=== PATIENT | female | born 1975 | race Two or more races ===

== ENCOUNTER 2020-05-11 08:56 | Emergency (ER) | payer OTHER ==
[~2020-05-11] VITALS: Ht 160 cm; Wt 90.9 kg
--- NOTE | 2020-05-11 09:20 | NUR ---
THIS IS A 44 YO F W/ C/O RT FLANK/RUQ ABD PAIN X1 WEEK. PT DENIES N/V. PT REPORTS WORSE WHEN SITTING DOWN. PT ALSO HAS C/O LT NECK PAIN. PT RESTING ON GURNEY W/ CALL LIGHT IN REACH, FAMILY AT BEDSIDE AND SIDE RAILS UPX2. RESP EVEN AND UNLABORED, AMAURY.
--- NOTE | 2020-05-11 09:23 | NUR ---
BREAK ANGELES BEVERLY AT BEDSIDE FOR EVALUATION. PT ABLE TO AMBULATE TO BATHROOM, URINE SAMPLE OBTAINED. PT RESTING IN BED, CALL LIGHT IN REACH.
[2020-05-11] MEDS ORDERED: SODIUM CHLORIDE FLUSH 10ML SYR IVF ONE (09:30)
[2020-05-11] MEDS ORDERED: ONDANSETRON 2MG/ML, 2ML ONE ×2 (09:30→10:43)
[2020-05-11] MEDS ORDERED: ONDANSETRON 2MG/ML, 2ML IVPush ONE ×2 (09:30→11:00)
[2020-05-11] MEDS ORDERED: HYDROmorphone 2 MG/ML, 1ML IVPush PRN (09:30)
[2020-05-11] MEDS ORDERED: HYDROmorphone 1 MG/ML, 1ML INJ ONE (09:30)
--- NOTE | 2020-05-11 09:40 | NUR ---
PIV STARTED AND LABS DRAWN BY NORRIS IVEY.
--- NOTE | 2020-05-11 09:46 | NUR ---
US IN ROOM.
--- NOTE | 2020-05-11 09:48 | NUR ---
PT DESAT TO 79% DURING US. PLACED ON 2L NC W/ DESIRED EFFECT.
[2020-05-11 09:49] LABS: MICROSCOPIC AUTO
[2020-05-11 09:57] LABS: BASOPHILS % (AUTO) 1 % (0-1); EOSINOPHILS % (AUTO) 1 % (1-7); LYMPHOCYTES % (AUTO) 25 % (22-44); MEAN CORPUSCULAR HEMOGLOBIN 24.6 pg (27.0-34.8); MEAN CORPUSCULAR HGB CONC 31.6 g/dL (32.4-35.8); MEAN PLATELET VOLUME 7.3 fL (7.4-10.4); MONOCYTES % (AUTO) 9 % (2-9); NEUTROPHILS % (AUTO) 64 % (42-75); PLATELET COUNT 360 x10^3/uL (130-400); RED CELL DISTRIBUTION WIDTH 18.3 % (9.6-15.2)
[2020-05-11 10:01] LABS: MD NO
[2020-05-11 10:08] LABS: ALANINE AMINOTRANSFERASE 17 U/L (12-78); ALBUMIN 3.6 g/dL (3.4-5.0); ANION GAP 8 mmol/L (5-15); CALCIUM 8.7 mg/dL (8.5-10.1); CHLORIDE 108 mmol/L (98-107); CREATININE 0.68 mg/dL (0.55-1.02)
[2020-05-11 10:11] LABS: ALKALINE PHOSPHATASE 109 U/L (45-117); BILIRUBIN,TOTAL 0.3 mg/dL (0.2-1.0); TOTAL PROTEIN 7.9 g/dL (6.4-8.2)
[2020-05-11 10:39] VITALS: BP 148/78
--- NOTE | 2020-05-11 10:41 | NUR ---
AT BEDSIDE FOR RECHECK.
--- NOTE | 2020-05-11 10:45 | NUR ---
PT HAS C/O NAUSEA. PT MEDICATED PER EMAR.
[2020-05-11] MEDS ORDERED: METOCLOPRAMIDE 5 MG/ML, 2ML ONE (11:27)
[2020-05-11] MEDS ORDERED: METOCLOPRAMIDE 5 MG/ML, 2ML IVPush ONE (11:30)
== END 2020-05-11 11:55 | disposition home or self-care (01) ==
LOC: ED 09:18
DX: N30.00 Acute cystitis without hematuria (principal); M54.2 Cervicalgia; K92.1 Melena; E11.9 Type 2 diabetes mellitus without complications; E78.5 Hyperlipidemia, unspecified
CPT/HCPCS: 36415; 76700; 80053; 81001; 83690; 85025; 87077; 87086; 93005; 96374; 96375; 96376; 99285; J1170; J2405; J2765; 87186